=== PATIENT | female | born 1975 | race Caucasian/White ===

== ENCOUNTER 2021-12-03 10:50 | Outpatient (CLI) | payer MEDICAID ==
[2021-12-03] MEDS ORDERED: NO HOME MEDS (11:26)
[2021-12-03 11:44] LABS: BASOPHILS % (AUTO) 0.2 % (0-1); EOSINOPHILS # (AUTO) 0.1 X10'3 (0-0.9); EOSINOPHILS % (AUTO) 1.5 % (0-6); LYMPHOCYTES # (AUTO) 2.3 X10'3 (1.1-4.8); LYMPHOCYTES % (AUTO) 34.2 % (21-51); MEAN CORPUSCULAR VOLUME 87.8 FL (78-98); MEAN PLATELET VOLUME 7.9 FL (7.4-10.4); MONOCYTES # (AUTO) 0.5 X10'3 (0-0.9); MONOCYTES % (AUTO) 6.9 % (2-12); NEUTROPHILS # (AUTO) 3.8 X10'3 (1.8-7.7); NEUTROPHILS % (AUTO) 57.2 % (42-75); PRE OP HEMATOCRIT 44.5 % (35.0-45.0); PRE OP HEMOGLOBIN 14.7 g/dL (12.0-16.0); PRE OP PLATELET COUNT 367 X10'3 (140-440); RED BLOOD COUNT 5.06 X10'6 (4.20-5.60); RED CELL DISTRIBUTION WIDTH 13.8 % (11.5-14.5)
[2021-12-03 12:05] LABS: ALBUMIN 3.5 G/DL (3.4-5.0); ALBUMIN/GLOBULIN RATIO 0.8 (1.1-1.5); ALKALINE PHOSPHATASE 122 IU/L (46-116); BLOOD UREA NITROGEN 11 MG/DL (7-18); BUN/CREATININE RATIO 12.8 (6.6-38.0); CHLORIDE 103 MMOL/L (99-107); CREATININE 0.86 MG/DL (0.40-0.90); PRE OP ALT 14 U/L (30-65); PRE OP ANION GAP 9 (8-16); PRE OP AST 11 U/L (10-37); PRE OP BILIRUB, TOTAL 0.2 MG/DL (0.0-1.0); PRE OP GLUCOSE 92 MG/DL (70-104); PRE OP POTASSIUM 3.6 MMOL/L (3.4-5.1); PRE OP SODIUM 139 MMOL/L (135-145); TOTAL CARBON DIOXIDE 27.4 MMOL/L (24-32); eGFR 72 ML/MIN
[2021-12-03 12:13] LABS: HCG SERUM QL NEGATIVE
== END 2021-12-03 23:59 | disposition home or self-care (01) ==
LOC: PRE-OP 10:50 → EDSTATUS 12-10 11:15 → LAB 12-10 12:00
PROVIDERS: ATTEND Orthopaedic Surgery
DX: Z01.818 Encounter for other preprocedural examination (principal); S83.242A Other tear of medial meniscus, current injury, left knee, initial encounter; F41.9 Anxiety disorder, unspecified; M17.0 Bilateral primary osteoarthritis of knee; E66.01 Morbid (severe) obesity due to excess calories; Z68.42 Body mass index [BMI] 45.0-49.9, adult; Z20.822 Contact with and (suspected) exposure to COVID-19; X58.XXXA Exposure to other specified factors, initial encounter; Y93.89 Activity, other specified; Y92.89 Other specified places as the place of occurrence of the external cause; Y99.8 Other external cause status
CPT/HCPCS: 36415; 80053; 84703; 85025; U0003; U0005

== ENCOUNTER 2022-01-21 08:06 | Day surgery (SDC) | payer MEDICAID ==
[2022-01-14 11:07] LABS: BASOPHILS % (AUTO) 0.2 % (0-1); EOSINOPHILS # (AUTO) 0.1 X10'3 (0-0.9); EOSINOPHILS % (AUTO) 1.8 % (0-6); LYMPHOCYTES # (AUTO) 2.3 X10'3 (1.1-4.8); LYMPHOCYTES % (AUTO) 29.1 % (21-51); MEAN CORPUSCULAR HGB CONC 33.3 g/dL (33.0-36.5); MEAN CORPUSCULAR VOLUME 87.1 FL (78-98); MEAN PLATELET VOLUME 8.1 FL (7.4-10.4); MONOCYTES # (AUTO) 0.6 X10'3 (0-0.9); MONOCYTES % (AUTO) 7.9 % (2-12); NEUTROPHILS # (AUTO) 4.8 X10'3 (1.8-7.7); PRE OP HEMATOCRIT 41.2 % (35.0-45.0); PRE OP HEMOGLOBIN 13.7 g/dL (12.0-16.0); PRE OP PLATELET COUNT 358 X10'3 (140-440); RED BLOOD COUNT 4.74 X10'6 (4.20-5.60); RED CELL DISTRIBUTION WIDTH 14.1 % (11.5-14.5)
[2022-01-14 11:15] LABS: HCG SERUM QL NEGATIVE
[2022-01-14 11:20] LABS: ALBUMIN 3.3 G/DL (3.4-5.0); ALBUMIN/GLOBULIN RATIO 0.9 (1.1-1.5); ALKALINE PHOSPHATASE 122 IU/L (46-116); BLOOD UREA NITROGEN 12 MG/DL (7-18); BUN/CREATININE RATIO 16.7 (6.6-38.0); CALCIUM 8.7 MG/DL (8.5-10.1); CHLORIDE 104 MMOL/L (99-107); CREATININE 0.72 MG/DL (0.40-0.90); PRE OP ALT 11 U/L (30-65); PRE OP ANION GAP 7 (8-16); PRE OP AST 9 U/L (10-37); PRE OP BILIRUB, TOTAL 0.2 MG/DL (0.0-1.0); PRE OP GLUCOSE 90 MG/DL (70-104); PRE OP POTASSIUM 4.4 MMOL/L (3.4-5.1); PRE OP SODIUM 138 MMOL/L (135-145); TOTAL CARBON DIOXIDE 27.5 MMOL/L (24-32); eGFR 88 ML/MIN
[~2022-01-21] VITALS: Ht 167.6 cm; Wt 134.8 kg
[2022-01-21] VITALS (7 sets, daily range): BP systolic 126–173; BP diastolic 98–105
[~2022-01-21 08:06] MED LIST: CHOL20004 PO; DIPH25CA83 PO; NO HOME MEDS; VANCOMYCIN 1,500MG inj. 1,500 MG in dextrose 5% water 500ml 300 ML IV ONE; cefazolin/dext.iso 2gm/50ml IV ONE; famotidine 20mg tablet PO ONE; ringers solution, lacted 1,000 ML IV SCH
[2022-01-21] MEDS ORDERED: CBD (09:54)
[2022-01-21] MEDS ORDERED: triamcinolone acetonide 40mg/ml inj ONE ×2 (10:08→10:12)
[2022-01-21] MEDS ORDERED: BUPIVAcaine 0.5% inj/PF 30 ML ONE ×2 (10:09→11:12)
[2022-01-21] MEDS ORDERED: fentaNYL /PF 50mcg/ml 5ml ampule ONE (11:26)
[2022-01-21] MEDS ORDERED: midazolam 1 mg/ML 2ml injection ONE (11:26)
[2022-01-21] MEDS ORDERED: morphine 4 MG/ML inj SYRINge IV PRN (12:15)
[2022-01-21] MEDS ORDERED: ondansetron/PF 4mg/2ml inj IV PRN (12:15)
[2022-01-21] MEDS ORDERED: ringers solution, lacted 1,000 ML IV SCH (12:15)
[2022-01-21] MEDS ORDERED: meperidine/PF 25mg/ml syringe IV PRN ×3 (12:15)
[2022-01-21] MEDS ORDERED: morphine 2 MG/ML inj. syringe IV PRN (12:15)
[2022-01-21] MEDS ORDERED: proCHLORperazine 10 MG/2 ml inj IV PRN (12:15)
[2022-01-21] MEDS ORDERED: propofol inj 20 ML IV ONE (12:35)
--- NOTE | 2022-01-21 12:42 | NUR ---
Received from OR via , accompanied by Anesthesiologist DR LUQUE and report given by Anesthesiolgist. AWAKENS TO VOICE. VITALS STABLE. DRESSING DI. ANTONINO PAIN.
--- NOTE | 2022-01-21 13:52 | NUR ---
AWAKE AND ORIENTED. VITALS STABLE. DRESSING DI. ANTONINO PAIN. HOME WITH HER SISTER AT THIS TIME.
== END 2022-01-21 13:52 | disposition home or self-care (01) ==
LOC: PAS 08:06
PROVIDERS: ATTEND Orthopaedic Surgery
DX: S83.232A Complex tear of medial meniscus, current injury, left knee, initial encounter (principal); S83.282A Other tear of lateral meniscus, current injury, left knee, initial encounter; M94.262 Chondromalacia, left knee; M17.12 Unilateral primary osteoarthritis, left knee; F41.9 Anxiety disorder, unspecified; F32.A Depression, unspecified; E66.01 Morbid (severe) obesity due to excess calories; Z68.42 Body mass index [BMI] 45.0-49.9, adult; Z20.822 Contact with and (suspected) exposure to COVID-19; Z88.8 Allergy status to other drugs, medicaments and biological substances; Z79.899 Other long term (current) drug therapy; Z87.891 Personal history of nicotine dependence; Z72.89 Other problems related to lifestyle; Z98.890 Other specified postprocedural states; Z86.718 Personal history of other venous thrombosis and embolism; X58.XXXA Exposure to other specified factors, initial encounter; Y92.89 Other specified places as the place of occurrence of the external cause; Y93.89 Activity, other specified; Y99.8 Other external cause status
CPT/HCPCS: 29873; 29879; 29880; 36415; 80053; 82948; 84703; 85025; J2250; J2704; J3010; J3301; J3370; J7060; J7120; S0020; U0003; U0005; Z7506; Z7508; Z7512; A4215; A4618; A6250; A6449; A7000; J7040